=== PATIENT | female | born 1995 | race Caucasian/White ===

== ENCOUNTER 2016-05-06 12:47 | Outpatient (CLI) | payer OTHER ==
--- NOTE | 2016-05-06 15:51 | DIAGNOSTIC IMAGING REPORT ---
PROCEDURE: US COMPLETE PELVIC W/TRANSVAG INDICATION: PELVIC PAIN TECHNIQUE: Transabdominal and endovaginal dave scale and color Doppler sonographic images of the female pelvis were obtained. COMPARISON: OB ultrasound 06/30/2015 FINDINGS: TRANSABDOMINAL SCANS: The uterus is of normal size 6.1 x 2.8 x 4.3 cm Kidneys are normal. TRANSVAGINAL SCANS: The uterus is anteverted. Myometrium is normal. The endometrium measures 1.8 mm. Right ovary is normal measuring 2.8 x 1.5 x 3.9 cm. There are two follicles on the right ovary. The largest measures 15 mm. The left ovary is normal measuring 2.7 x 2.3 x 1.4 cm. Multiple follicles are present on the left ovary. There is good blood flow in both ovaries. IMPRESSION: 1. Normal uterus and ovaries and kidneys.
== END 2016-05-06 23:00 ==
LOC: US SRH 12:47
DX: N93.9 Abnormal uterine and vaginal bleeding, unspecified (principal)